=== PATIENT | male | born 1950 | race Caucasian/White ===

== ENCOUNTER 2022-06-05 07:30 | Inpatient (IN) ==
[~2022-06-05 07:30] MED LIST: Buffered Lidocaine 1% SYRIN 1 ml INTRADERM ONE; Lactated Ringers 1000 ml BAG 1,000 ML IV SCH
[2022-06-05] MEDS ORDERED: ceFAZolin 2 GM PREMIX 2 GM/50 ML BAG ONE (10:53)
[2022-06-05] MEDS ORDERED: ROPIVACAINE 5 MG/ML 30 ML BTL (0.5%) ONE ×2 (12:03→12:37)
[2022-06-05] MEDS ORDERED: Midazolam 2 mg/2 ml VIAL 1 mg/ml 2 ml VIAL (2 mg) ONE (12:03)
[2022-06-05] MEDS ORDERED: fentaNYL 100 mcg/2 ml 50 MCG/ML VIAL ONE (12:03)
[2022-06-05] MEDS ORDERED: Phenylephrine IV 10 MG/ML 1 ml VIAL ONE (12:48)
[2022-06-05] MEDS ORDERED: Lidocaine 2% PF 5 ML VIAL ONE (12:48)
[2022-06-05] MEDS ORDERED: Ondansetron 4 mg VIAL 2 MG/ML 2 ml VIAL ONE (13:26)
[2022-06-05] MEDS ORDERED: Dexamethasone IV 4 MG/ML VIAL 1 ml VIAL ONE (13:26)
[2022-06-05] MEDS ORDERED: Naloxone 0.4 mg VIAL 0.4 mg/ml 1 ml VIAL IV PRN (13:33)
[2022-06-05] MEDS ORDERED: fentaNYL 100 mcg/2 ml 50 MCG/ML VIAL IV PRN (13:33)
[2022-06-05] MEDS ORDERED: Ondansetron 4 mg VIAL 2 MG/ML 2 ml VIAL IV PRN ×2 (13:33→14:03)
[2022-06-05] MEDS ORDERED: Hydrocortisone INJ 100 MG/2ML 2 ML VIAL ONE (13:48)
[2022-06-05] MEDS ORDERED: Magnesium Hydroxide LIQ 30 ML UDC PO PRN (14:03)
[2022-06-05] MEDS ORDERED: Ondansetron ODT 4 mg TAB 4 MG TAB PO PRN (14:03)
[2022-06-05] MEDS ORDERED: Morphine 2 MG/ML SYRINGE IV PRN (14:03)
[2022-06-05] MEDS ORDERED: Lactulose 30 ml UDC PO PRN (14:03)
[2022-06-05] MEDS ORDERED: Sodium Chloride 0.9% 20 ML ONE (14:41)
[2022-06-05] MEDS ORDERED: ceFAZolin 1 GM ADVAN 1 GM in NS 0.9% 50 ML 50 ML IVPB SCH (15:00)
[2022-06-05] MEDS ORDERED: Propofol 10 MG/ML 20 ML BTL ONE (15:15)
[2022-06-05] MEDS ORDERED: Dextrose 50% Syringe 50 ml 25 GM/50 ML SYRINGE IV PUSH PRN (17:03)
[2022-06-05] MEDS: Lactated Ringers 1000 ml BAG 1,000 ML IV SCH (17:12)
[2022-06-05] MEDS ORDERED: NF: Azelastine/Fluticasone 137-50 MCG BTL (NF) BOTH NARES SCH (21:00)
[2022-06-05] MEDS: Hydrocortisone INJ 100 MG/2ML 2 ML VIAL IV SCH (21:15)
[2022-06-05] MEDS: ceFAZolin 1 GM ADVAN 1 GM in NS 0.9% 50 ML 50 ML IVPB SCH (21:21)
[2022-06-05] MEDS: Magnesium Hydroxide LIQ 30 ML UDC PO SCH (21:23)
[2022-06-06] MEDS: Hydrocortisone INJ 100 MG/2ML 2 ML VIAL IV SCH ×2 (02:45→10:26)
[2022-06-06] MEDS: Lactated Ringers 1000 ml BAG 1,000 ML IV SCH (05:45)
[2022-06-06] MEDS: ceFAZolin 1 GM ADVAN 1 GM in NS 0.9% 50 ML 50 ML IVPB SCH ×2 (05:49→12:51)
[2022-06-06 06:50] LABS: Hematocrit 40 % (42-52); Hemoglobin 12.9 g/dL (14.0-18.0); Mean Platelet Volume 9.2 fL (7.4-10.4); Platelet Count 178 10^3/uL (150-450)
[2022-06-06 07:18] LABS: Calcium 8.4 mg/dL (8.6-10.3); Potassium 4.8 mmol/L (3.5-5.0)
[2022-06-06 07:23] LABS: Creatinine, Serum 1.32 mg/dL (0.67-1.17); eGFR CKD-EPI 57.7 (>60)
[2022-06-06] MEDS: Magnesium Hydroxide LIQ 30 ML UDC PO SCH (08:46)
[2022-06-06] MEDS ORDERED: Vitamin THERAPEUTIC TAB PO SCH (09:00)
[2022-06-06 11:07] VITALS: BP 105/60
== END 2022-06-06 14:20 | disposition home or self-care (01) | DRG 470 ==
LOC: INTOOBSV 10:08 → AA 10:08 → SSU 14:04
PROVIDERS: ADMIT Orthopaedic Surgery Adult Reconstructive Orthopaedic Surgery; ATTEND Orthopaedic Surgery Adult Reconstructive Orthopaedic Surgery

== ENCOUNTER 2024-03-15 20:30 | Observation (INO) ==
[2024-03-15] MEDS: Lactated Ringers 1000 ml BAG 1,000 ML IV ONE (21:23)
[2024-03-15 21:29] LABS: ABS Eosinophils 0.1 10^3/uL (0.0-0.5); ABS Lymphocytes 0.9 10^3/uL (1.0-4.8); ABS Monocytes 0.7 10^3/uL (0.0-1.1); Eosinophil % 0.7 %; Hematocrit 37.3 % (38-53); Hemoglobin 12.1 g/dL (13.2-16.3); Lymphocyte % 10.4 %; Mean Corpuscular Hemoglobin 26.2 pg (27-33); Mean Corpuscular Hgb Conc 32.3 g/dL (31-36); Mean Corpuscular Volume 81.2 fL (80-97); Mean Platelet Volume 8.5 fL (7.5-11.2); Platelet Count 289 10^3/uL (150-450); Red Cell Distribution Width 16.5 % (12-17); White Blood Count 8.7 10^3/uL (3.6-10.2)
[2024-03-15 22:15] LABS: Albumin 3.4 g/dL (3.2-5.2); Albumin/Globulin Ratio 1.4 (1-3); C Reactive Protein 24.83 mg/L (<8.01); Calcium 8.8 mg/dL (8.6-10.3); Globulin 2.4 g/dL (2-4); Total Bilirubin 0.3 mg/dL (0.2-1.0); Total Protein 5.8 g/dL (6.4-8.9); eGFR CKD-EPI 79.5 (>60)
[2024-03-15] MEDS: Ondansetron 4 mg VIAL 2 MG/ML 2 ml VIAL IV ONE (22:34)
[2024-03-15 23:01] LABS: High Sensitivity Troponin 1 Hr 5 pg/mL (<20)
[2024-03-16] MEDS: Iohexol 350 (CONTRAST) 500 ML MDV IV ONE (00:03)
[2024-03-16 02:57] LABS: Urine Appearance Clear; Urine Bilirubin Negative (Negative); Urine Blood Negative (Negative); Urine Color Light-Yellow; Urine Glucose Negative (Negative); Urine Ketones Negative (Negative); Urine Nitrite Negative (Negative); Urine Protein Trace (Negative); Urine Specific Gravity >1.050 (1.002-1.030); Urine Urobilinogen Negative (Negative); Urine pH 6.5 (5.0-8.0)
[2024-03-16] MEDS ORDERED: Dexamethasone IV 4 MG/ML VIAL 1 ml VIAL IV SLOW PU ONE ×2 (03:26→03:55)
[2024-03-16] MEDS ORDERED: Senna TAB 8.6 mg TAB PO PRN (03:39)
[2024-03-16] MEDS ORDERED: Al Hydrox/Mg Hydrox/Simet LIQ 30 ML UDC PO PRN (03:39)
[2024-03-16] MEDS: Remdesivir 100 mg Vial 200 MG in NS 0.9% 250 ml 210 ML IV ONE (04:29)
[2024-03-16] MEDS: NS 0.9% 1000 ml BAG 1,000 ML IV SCH (04:51)
[2024-03-16] MEDS: Dexamethasone IV 4 MG/ML VIAL 1 ml VIAL IV SLOW PU ONE (04:54)
[2024-03-16] MEDS: Enoxaparin 40 MG/0.4 ML SYR SUBCUT SCH (04:54)
[2024-03-16] MEDS: Fluticasone NASAL SPRAY 50MCG 16 gm SPRAY BTL INTRANASAL SCH (09:15)
[2024-03-16 18:00] VITALS: BP 126/82
[2024-03-17] MEDS ORDERED: Remdesivir 100 mg Vial 100 MG in NS 0.9% 250 ml 230 ML IV SCH (09:00)
== END 2024-03-16 18:36 | disposition home or self-care (01) ==
LOC: EDHOLD 20:30 → ED 20:30 → SUATTDRO 03-16 03:39 → MEDTELE 03-16 05:21
PROVIDERS: ADMIT Internal Medicine; ATTEND Hospitalist